=== PATIENT | male | born 1985 | race Caucasian/White ===

== ENCOUNTER 2019-07-20 07:36 | Emergency (ER) | payer OTHER ==
[~2019-07-20] VITALS: Ht 180.3 cm; Wt 81.6 kg
--- NOTE | 2019-07-20 07:36 | NUR ---
Patient to ER [facility] to [facility] for evaluation. Side rails up. Assumed care of patient.
[2019-07-20 07:41] VITALS: BP_SYST 138
--- NOTE | 2019-07-20 07:52 | NUR ---
Written and verbal consent obtained from patient for blood alcohol, name and verified by patient. Disinfected patient's skin with iodine that did not contain alcohol or other volatile organic compound. Collected the blood from the subject named by venipuncture, in the presence of Officer Arjun. Used a sterile, dry hypodermic needle and dry vacuum blood collection. Two dry vacuum blood collection was supplied by the officer named above. Withdrew a specimen of blood from left AC of the subject named above. Inverted both blood tube several times to ensure that the preservative and anticoagulant were thoroughly mixed in the blood specimen. The labeled blood tubes was handed directly to the Officer named above. The blood tubes stopper remained in place while I had possession of the blood tubes. The Officer placed tubes into envelope and sealed it in my presence. Envelope initialed by myself and Officer named above. Patient tolerated well, bandage applied, and bleeding controlled.
--- NOTE | 2019-07-20 07:55 | NUR ---
ER Dr. Thornton at bedside examining patient.
--- NOTE | 2019-07-20 08:13 | NUR ---
[facility] officer Arjun given written discharge information and forms for ok to book and blood alcohol draw. Patient given verbal discharge instructions and verbalizes understanding. ER MD discussed with patient the results and treatment provided. Patient in stable condition. ID arm band removed. Patient educated on need to follow up with PMD. Pain Scale 0/10. Opportunity for questions provided and answered.
== END 2019-07-20 08:12 ==
LOC: SED 07:36
DX: F10.129 Alcohol abuse with intoxication, unspecified (principal)
CPT/HCPCS: 99283